=== PATIENT | male | born 1950 | race Caucasian/White ===

== ENCOUNTER 2025-03-14 16:41 | Emergency (ER) | payer BC ==
--- NOTE | 2025-03-14 18:12 | EDPHYS ---
Physician Documentation [facility] Name: Josh Marcelo Age: 75 yrs Sex: Male : 1950 Arrival Date: 03/14/2025 Time: 16:41 Bed 9 Private MD: ED Physician Abiel Coello HPI: 03/14 17:45 This 75 yrs old Male presents to ER via Ambulatory with complaints of Abscess dr5 - MOUTH. 17:45 The patient presents with an abscess of the right cheek and right jaw, the patient dr5 presents with a swollen area of the right cheek and right jaw. Onset: The symptoms/episode began/occurred 3 day(s) ago. Patient is a 75-year-old male with history of hypertension coming in with swelling to right face from dental caries. Patient reports that he called his dentist today that was closed. Patient reports he would like antibiotics and pain medication.. Historical: - Allergies: 17:23 No Known Allergies; iw - PMHx: 17:23 Hypertensive disorder; iw - PSHx: 17:23 melanoma; iw - Immunization history:: Adult Immunizations. - Infectious Disease History:: Denies. - Social history:: Smoking status: Patient denies any tobacco usage or history of. Patient/guardian denies using tobacco, but has a distant history of tobacco abuse. ROS: 17:45 Constitutional: as per hpi dr5 Exam: 17:45 Constitutional: This is a well developed, well nourished patient who is awake, alert, dr5 and in no acute distress. Head/Face: Normocephalic. Swelling noted to right buccal area with no tenderness to palpation. ENT: Nares patent. No nasal discharge, no septal abnormalities noted. Tympanic membranes are normal and external auditory canals are clear. Oropharynx with no redness, swelling, or masses, exudates, or evidence of obstruction, uvula midline. Mucous membranes moist. Neck: Trachea midline, no thyromegaly or masses palpated, and no cervical lymphadenopathy. Supple, full range of motion without nuchal rigidity, or vertebral point tenderness. No Meningismus. Chest/axilla: Normal chest wall appearance and motion. Nontender with no deformity. No lesions are appreciated. Cardiovascular: Regular rate and rhythm with a normal S1 and S2. Normal PMI, no JVD. No pulse deficits. Respiratory: Lungs have equal breath sounds bilaterally, clear to auscultation. No rales, rhonchi or wheezes noted. No increased work of breathing, no retractions or nasal flaring. Back: No spinal tenderness. No costovertebral tenderness. Full range of motion. Skin: Warm, dry with normal turgor. Normal color with no rashes, no lesions, and no evidence of cellulitis. MS/ Extremity: Pulses equal, no cyanosis. Neurovascular intact. Full, normal range of motion. Neuro: Awake and alert, GCS 15, oriented to person, place, time, and situation. Cranial nerves II-XII grossly intact. Motor strength 5/5 in all extremities. Sensory grossly intact. Cerebellar exam normal. Normal gait. 17:45 ENT: Dental exam: abscess, that is mild, specifically in the lower right first molar (#30), dental caries, that is moderate, diffusely, Vital Signs: 17:22 BP 122 / 85; Pulse 106; Resp 19; Pulse Ox 97% on R/A; Weight 86.18 kg; Height 5 ft. 9 iw in. ; 17:43 Temp 98.4; dr5 18:00 BP 128 / 78; Pulse 90; Resp 18; Pulse Ox 96% on R/A; kb4 17:22 Body Mass Index 28.06 (86.18 kg, 175.26 cm) iw MDM: 16:48 Medical Screening Exam initiated dr5 17:45 Differential diagnosis: abscess, allergic reaction, cellulitis. Data reviewed: vital dr5 signs, nurses notes. Consideration of Admission/Observation Escalation of care including admission/observation considered. Escalation considered if patient found to have fever or trismus. I considered the following discharge prescriptions or medication management in the emergency department I discussed and recommended Over The Counter medications, Medications were administered in the Emergency Department. See MAR. Historians other than the Patient: Daughter/Son: Daughter. Care significantly affected by the following chronic conditions: Hypertension. Care significantly affected by the following Social Determinants of Health: Poor access to healthcare and/or lack of insurance, Poor access to transportation, Problems related to employment. Counseling: I had a detailed discussion with the patient and/or guardian regarding the historical points, exam findings, and any diagnostic results supporting the discharge/admit diagnosis, the presence of at least one elevated blood pressure reading (>120/80) during this emergency department visit, the need for outpatient follow up, for definitive care, a dentist, to return to the emergency department if symptoms worsen or persist or if there are any questions or concerns that arise at home. Refusal of service: The patient/guardian displays adequate decision making capability and despite a detailed discussion of alternatives, benefits, risks, and consequences refuses: Admission to the hospital for further work-up and treatment, CT Scan, all lab tests. Special discussion: Based on the history and exam findings, there is no indication for further emergent testing or inpatient evaluation. I discussed with the patient/guardian the need to see a dentist for further evaluation of the symptoms. ED course: Explained that patient likely requires blood work, CAT scan, and likely transfer to hospital with OMFS. Patient reports he does not want to have any of that done and would like to try outpatient antibiotics first. Patient states that he will come back if things worsen, but would rather see his dentist on Monday. AMA form filled out and completed. Explained to patient that he is more than welcome to come back anytime if he changes his mind and we will be happy to take care of him. All question answered. Stricter precautions given. Administered Medications: 18:36 Drug: Amoxicillin-Clavulanate PO 875 mg PO once Route: PO; kb4 18:36 Follow up: Response: Medication administered at discharge. kb4 18:36 Drug: Dexamethasone IM 10 mg IM once Route: IM; Site: right gluteus; kb4 18:36 Follow up: Response: Medication administered at discharge. kb4 Disposition: 03/15 08:29 Co-signature as Attending Physician, Abiel Coello MD I agree with the assessment and elina plan of care. Disposition Summary: 03/14/25 18:12 Discharge Ordered Notes: Location: Home dr5 Condition: Stable dr5 Diagnosis - Dental caries, unspecified dr5 Followup: dr5 - With: Emergency Department - When: As needed - Reason: Worsening of condition Followup: dr5 - With: Private Physician - When: 1 - 2 days - Reason: Recheck today's complaints, Continuance of care, Re-evaluation by your physician Discharge Instructions: - Discharge Summary Sheet dr5 - Dental Abscess dr5 Forms: - Medication Reconciliation Form dr5 - Antibiotic Education dr5 - Prescription Opioid Use dr5 - Patient Portal Instructions dr5 - Leadership Thank You Letter dr5 Prescriptions: - Augmentin 875-125 mg Oral Tablet - take 1 tablet ORAL route every 12 hours for 10 days; 20 tablet; Refills: 0, dr5 Product Selection Permitted - Tramadol 50 mg Oral Tablet - take 1 tablet ORAL route every 8 hours as needed; 12 tablet; Refills: 0, dr5 Product Selection Permitted Signatures: Abiel Coello MD MD cha Williams, Irene, RN RN Dante Martinez, LAUREN-C REPACK ROOM WORKER-Cdr5 Courtney Armstrong RN RN kb4
--- NOTE | 2025-03-14 18:12 | ER ---
Nurse's Notes [facility] Name: Josh Marcelo Age: 75 yrs Sex: Male : 1950 Arrival Date: 03/14/2025 Time: 16:41 Bed 9 Private MD: Diagnosis: Dental caries, unspecified Presentation: 03/14 17:22 Chief complaint: Patient states: had a toothache a few days ago, now his right side of iw his face is swollen, has a bad tooth on right lower side. Coronavirus screen: At this time, the client does not indicate any symptoms associated with coronavirus-19. Ebola Screen: No symptoms or risks identified at this time. Initial Sepsis Screen: Does the patient meet any 2 criteria? No. Patient's initial sepsis screen is negative. Does the patient have a suspected source of infection? No. Patient's initial sepsis screen is negative. Risk Assessment: Do you want to hurt yourself or someone else? Patient reports no desire to harm self or others. Onset of symptoms was March 11, 2025. 17:22 Method Of Arrival: Ambulatory iw 17:25 Acuity: CORAL 4 iw Triage Assessment: 18:40 General: Appears in no apparent distress. comfortable. kb4 18:40 General: Behavior is calm, cooperative. kb4 Historical: - Allergies: 17:23 No Known Allergies; iw - PMHx: 17:23 Hypertensive disorder; iw - PSHx: 17:23 melanoma; iw - Immunization history:: Adult Immunizations. - Infectious Disease History:: Denies. - Social history:: Smoking status: Patient denies any tobacco usage or history of. Patient/guardian denies using tobacco, but has a distant history of tobacco abuse. Screenin:00 [facility] ED Fall Risk Assessment (Adult) History of falling in the last 3 months, kb4 including since admission No falls in past 3 months (0 pts) Confusion or Disorientation No (0 pts) Intoxicated or Sedated No (0 pts) Impaired Gait No (0 pts) Mobility Assist Device Used No (0 pt) Altered Elimination No (0 pt) Score/Fall Risk Level 0 - 2 = Low Risk. Abuse screen: Denies threats or abuse. Denies injuries from another. Nutritional screening: No deficits noted. Tuberculosis screening: No symptoms or risk factors identified. Assessment: 18:20 Pain: Complains of pain in lower right first molar (#30) and face and right jaw and kb4 right cheek. 18:20 Neuro: Level of Consciousness is awake, alert, obeys commands, Oriented to person, kb4 place, time, situation. Cardiovascular: Patient's skin is warm and dry. Respiratory: Airway is patent Respiratory effort is even, unlabored, Respiratory pattern is regular, symmetrical. 18:36 Reassessment: requested to leave AMA, physician notified, pt educated on need for kb4 medical care. Vital Signs: 17:22 BP 122 / 85; Pulse 106; Resp 19; Pulse Ox 97% on R/A; Weight 86.18 kg; Height 5 ft. 9 iw in. ; 17:43 Temp 98.4; dr5 18:00 BP 128 / 78; Pulse 90; Resp 18; Pulse Ox 96% on R/A; kb4 17:22 Body Mass Index 28.06 (86.18 kg, 175.26 cm) iw ED Course: 16:46 Patient arrived in ED. cj3 16:48 Dante Blue FNP-C is PHCP. dr5 16:48 Abiel Coello MD is Attending Physician. dr5 17:24 Arm band placed on. iw 17:25 Triage completed. iw 18:00 Patient has correct armband on for positive identification. Provided Education on: need kb4 for medical attention . 18:00 No provider procedures requiring assistance completed. Patient did not have IV access kb4 during this emergency room visit. 18:12 Courtney Armstrong, RN is Primary Nurse. kb4 Administered Medications: 18:36 Drug: Amoxicillin-Clavulanate PO 875 mg PO once Route: PO; kb4 18:36 Follow up: Response: Medication administered at discharge. kb4 18:36 Drug: Dexamethasone IM 10 mg IM once Route: IM; Site: right gluteus; kb4 18:36 Follow up: Response: Medication administered at discharge. kb4 Medication: 18:40 VIS not applicable for this client. kb4 Outcome: 18:12 Discharge ordered by . dr5 18:40 AMA AMA form signed kb4 18:40 Condition: stable 18:40 Discharge instructions given to patient, Instructed on discharge instructions, follow up and referral plans. Demonstrated understanding of instructions, follow-up care, Prescriptions given X 2, 18:40 Patient left the ED. kb4 Signatures: Maegan Daniel, RN RN iw Dante Blue, DIRECTOR LONG TERM CARE-C DIRECTOR LONG TERM CARE-Cdr5 Courtney Armstrong RN RN kb4 Delia Kruger cj3
[2025-03-14] MEDS ORDERED: AMOX/K CLAV 875 MG TAB ONE (18:17)
[2025-03-14 23:36] VITALS: TEMP 98.4
[2025-03-14 23:37] VITALS: BP 128/78; O2SAT 96
== END 2025-03-14 18:40 | disposition home or self-care (01) ==
LOC: ER 16:41
DX: K02.9 Dental caries, unspecified (principal)
CPT/HCPCS: 96372; 99284; J1100